=== PATIENT | female | born 1940 | race Caucasian/White ===

== ENCOUNTER 2020-02-19 10:44 | Inpatient (IN) | payer MEDICARE, SELFPAY ==
[2020-02-19] VITALS (7 sets, daily range): BP systolic 151–189; BP diastolic 58–71; PULSE 57–66; RESP 12–21; TEMP 36.1; O2SAT 98–100; BMI 18.0
--- NOTE | ~2020-02-19 | XR_ITS ---
EXAMINATION: XR chest 2V 02/19/2020 11:52 INDICATION: Hypertension. Weakness. PROCEDURE: 2 view chest COMPARISON: 02/20/2019 FINDINGS: The lungs are clear. The cardiomediastinal silhouette is within normal limits. There are no pleural effusions. There is no pneumothorax suspected. There is atherosclerosis of the aorta. El evated right diaphragm. IMPRESSION: 1: NO ACUTE CARDIOPULMONARY DISEASE. Reviewed, dictated and finalized at location A.
--- NOTE | 2020-02-19 11:15 | ECG_ITS ---
Measurements Intervals [place] Rate: 63 P: 61 [place]: 161 QRS: 26 QRSD: 98 T: 57 QT: 398 QTc: 410 Interpretive Statements SINUS RHYTHM ANTEROSEPTAL INFARCT, AGE INDETERMINATE BASELINE ARTIFACT- I, II, AVR, AVL, AVF ABNORMAL ECG Electronically Signed On 02-19-2020 11:52:33 CDT by Kervin Sun D.O.
[2020-02-19 11:27] LABS: Basophils Absolute Auto 0.1 K/mm3 (0.0-0.1); Basophils Percent Auto 1.4 % (0.2-1.2); Eosinophils Absolute Auto 0.3 K/mm3 (0-0.3); Hematocrit 29.6 % (37.0-47.0); Hemoglobin 9.8 g/dL (12.0-15.0); Immature Granulocyte Absolute 0.02 K/mm3 (0.00-0.031); Immature Granulocyte Percent A 0.4 % (0-0.5); Lymphocytes Absolute Auto 0.76 K/mm3 (0.9-3.2); Lymphocytes Percent Auto 15.6 % (18.3-44.2); Mean Corpuscular HGB Conc 33.1 g/dl (32-36); Mean Corpuscular Hemoglobin 31.7 pg (26-34); Mean Corpuscular Volume 95.8 fl (80-100); Mean Platelet Volume 9.8 fl (7.4-10.4); Monocytes Absolute Auto 0.5 K/mm3 (0.1-0.6); Monocytes Percent Auto 9.9 % (2.6-8.5); Neutrophils Absolute Auto 3.2 K/mm3 (1.3-6.7); Neutrophils Percent Auto 65.7 % (45.5-73.1); Platelet Count Result 290 k/mm3 (150-375); Red Blood Count 3.09 M/mm3 (4.2-5.4); Red Cell Distribution Width 12.8 % (11.5-14.5); White Blood Count 4.9 K/mm3 (4.5-10.0)
[2020-02-19 11:42] LABS: Alanine Aminotransferase 10 U/L (4-35); Albumin Level 4.5 g/dL (3.5-5.1); Alkaline Phosphatase 82 U/L (38-126); Anion Gap 10 mmol/L (8-16); Aspartate Amino Transferase 22 U/L (14-36); Bilirubin,Total 0.3 mg/dL (0.2-1.3); Blood Urea Nitrogen 21 mg/dL (7-17); Calcium 9.3 mg/dL (8.4-10.2); Carbon Dioxide 26 mmol/L (22-30); Chloride 92 mmol/L (98-107); Estimated CRCL calculation 23 ml/min; Estimated Glomerular Filt Rate 39; Glucose 159 mg/dL (65-105); Potassium 4.8 mmol/L (3.4-5.0); Sodium 128 mmol/L (137-145)
--- NOTE | 2020-02-19 12:19 | ED.GENADULT ---
HPI - General Adult General Chief complaint: Weakness Stated complaint: weakness, n/v Time Seen by Provider: 02/19/20 12:15 Source: patient and family Mode of arrival: ambulatory Limitations: no limitations History of Present Illness HPI narrative: 79 years old white female presents with general weakness for weeks, poor p.o. intake, dry mouth. Patient also complaining of bouts of vomiting for months. History of cancer throat, status post radiation, and left ear hearing impairment. Patient denies any fever, chills, nausea, vomiting, diarrhea, coughing, respiratory symptoms, chest pain or back pain. The daughter told me that,basically patient referred to the emergency room by her family physician for tuneup.. Currently patient denying any symptoms. Related Data Home Medications Medication Instructions Recorded Confirmed aspirin 81 mg PO DAILY 02/19/20 calcium carbonate-vitamin D3 1 tablet PO DAILY 02/19/20 [Oyster Shell Calcium-Vit D3] docusate sodium [Colace Clear] 50 mg PO DAILY 02/19/20 Allergies Allergy/AdvReac Type Severity Reaction Status Date / Time No Known Allergies Allergy Verified 02/19/20 11:35 Review of Systems Review of Systems: Narrative: CONSTITUTIONAL: Denies fever, chills, or sweats. EYES: Denies visual changes, redness, or discharge. ENT: Denies rhinorrhea, congestion, sore throat, or otalgia. CARDIOVASCULAR: Denies chest pain, palpitations, or edema. RESPIRATORY: Denies cough or dyspnea. GASTROINTESTINAL: Denies abdominal pain, nausea, vomiting, or diarrhea. GENITOURINARY: Denies dysuria or hematuria. SKIN: Denies rash or itching. MUSCULOSKELETAL: Denies back pain, joint pain, or myalgia. NEUROLOGIC: Denies headache, numbness, or weakness. PSYCHIATRIC: Denies anxiety or depression. PMFSH Family History Family History Mother Family history of cardiovascular disease Acute myocardial infarction Diabetes mellitus Father Family history of lung cancer Sibling Family history of cardiovascular disease Social History Social History Smoking status: Never smoker Alcohol intake: never Exam Narrative: Exam Narrative: General appearance: Well-developed, well-nourished Skin: Normal color Head: Normocephalic, nontraumatic Eyes: Clear conjunctiva ENT: Oropharynx normal, hearing aids bilaterally, normal nose Neck: Supple, nontender Chest and respiratory: Airway patent, no respiratory distress, no accessory muscle use Heart: Regular rate/rhythm Abdomen: Soft, nontender, no organomegaly, quiet bowel sounds Vascular: Normal peripheral pulses, normal capillary refill. 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, no gross motor deficit Course Course Emergency Course: Stable Vital Signs Vital signs: Vital Signs Temperature 36.1 C L 02/19/20 11:17 Pulse Rate 65 02/19/20 11:17 Respiratory Rate 12 02/19/20 11:17 Blood Pressure 151/63 H 02/19/20 11:17 Pulse Oximetry 99 02/19/20 11:17 Temperature 36.1 C L 02/19/20 11:17 Pulse Rate 59 L 02/19/20 11:42 Respiratory Rate 17 02/19/20 11:42 Blood Pressure 189/71 H 02/19/20 11:42 Pulse Oximetry 100 02/19/20 11:42 Medical Decision Making [facility] Narrative Medical decision making narrative: Patient main complaint is weakness which could be secondary to poor p.o. intake secondary to cancer of the throat, also depression. My plan to get labs to rule out the possibility of electrolyte imbalance or any infection like pneumonia or urinary tract infection. Differential Diag
[2020-02-19 12:39] LABS: Add Urine Microscopic? YES; Appearance Urine Clear (Clear); Bacteria Urine Trace /hpf; Bilirubin Urine Negative (Negative); Blood Urine Negative (Negative); Color Urine Yellow (Yellow); Glucose Urine UA 1+ mg/dL (Negative); Ketones Urine Negative (Negative); Leukocyte Esterase Ur 2+ LEU/UL (Negative); Mucus Urine Rare /lpf; Nitrate Urine Negative (Negative); Protein Urine Negative (Negative); Specific Grav Ur 1.011 (1.001-1.035); Squamous Epithelial Cell Urine Many /hpf (Few); Urobilinogen Urine Negative mg/dL (<2.0)
--- NOTE | 2020-02-19 15:39 | PC.NURSE ---
This patient, Jayla Hernandez, was admitted to [facility] S[facility] Room 303-01. Patient/family oriented to hospital policies and general routines including ID bracelet, bed and alarms, visiting hours, pain management, procedures, bathroom and other care routines, personal items, smoking policy, room service/diet, and visiting hours. Valuables list has been completed. Information on how to activate the Rapid Response Team has been discussed. Patient/Family are encouraged to report perceived risks to care and to ask questions if they do not understand what they are told or what they should do.
[2020-02-19] MEDS: SODIUM CHLORIDE 0.9% IV 1,000 ML 100 ML IV CONT (15:47)
[2020-02-19 18:10] LABS: Glucose Point of Care 127 (65-105)
[2020-02-19 22:56] LABS: Glucose Point of Care 155 (65-105)
[2020-02-19 22:56] LABS: Glucose Point of Care < 20 (65-105)
[2020-02-20 01:41] VITALS: BP 142/50; PULSE 64; RESP 16; TEMP 36.3; O2SAT 100
--- NOTE | 2020-02-20 02:38 | PM.IMHP ---
H&P: HPI History of Present Illness Date/Time: 02/20/20 02:38 Chief complaint: Weakness/depression/hyponatremia and dehydration Narrative: This is an 79 year old female with known history of throat cancer s/p radiation, HTN, and GERD who was referred to the hospital by her PCP. Apparently the patient has been having episodes of vomiting for months. On my encounter with the patient tonight she denies any fever, chills, nausea, vomiting, diarrhea, coughing, respiratory symptoms, chest pain, dysuria, heamaturia, or rectal bleeding. The patient was evaluated in the ER yesterday and routine labs demonstrated mild hyponatremia and dehydration. The patient was admitted to the hospital and treated with IV fluids. No other complaints. Review of Systems Review of Systems: All systems reviewed & are unremarkable except as noted in HPI and below PMFSH Past Medical History Medical History GERD (gastroesophageal reflux disease) HTN (hypertension) with goal to be determined Throat cancer Family History Family History Mother Family history of cardiovascular disease Diabetes mellitus Acute myocardial infarction Father Family history of lung cancer Sibling Family history of cardiovascular disease Sibling Acute myocardial infarction Social History Social History Smoking status: Never smoker Alcohol intake: never Substance use: never Substance use type: does not use Gender identity (if verbalized by the patient): Female Spiritual care concerns: No Meds Home Medications and Allergies Home Medications Medication Instructions Recorded Confirmed Type amlodipine 5 mg tablet 5 mg PO DAILY #90 tablet 06/18/19 02/19/20 Rx omeprazole 20 mg capsule,delayed 20 mg PO DAILY #90 cap 06/18/19 02/19/20 Rx release metoprolol tartrate 50 mg tablet 50 mg PO BID #180 tablet 10/12/19 02/19/20 Rx lisinopril 20 mg tablet 20 mg PO DAILY #90 tablet 12/14/19 02/19/20 Rx aspirin 81 mg PO DAILY 02/19/20 02/19/20 History calcium carbonate-vitamin D3 1 tablet PO DAILY 02/19/20 02/19/20 History [Oyster Shell Calcium-Vit D3] docusate sodium [Colace Clear] 50 mg PO DAILY 02/19/20 02/19/20 History triamcinolone acetonide 1 applic TOPICAL QID 02/19/20 02/19/20 History Allergies Allergy/AdvReac Type Severity Reaction Status Date / Time No Known Allergies Allergy Verified 02/19/20 11:35 Vital Signs Vital Signs - 24 hr 02/19/20 11:17 02/19/20 11:41 02/19/20 11:42 Temperature 36.1 C L Pulse Rate 65 65 59 L Respiratory Rate 12 17 Blood Pressure 151/63 H 189/71 H Pulse Oximetry 99 100 02/19/20 13:12 02/19/20 13:50 02/19/20 14:20 Temperature 36.1 C L Pulse Rate 60 57 L 65 Respiratory Rate 21 H 19 18 Blood Pressure 168/71 H 162/62 H 189/62 H Pulse Oximetry 100 100 99 02/19/20 21:05 02/20/20 01:41 Temperature 36.1 C L 36.3 C L Pulse Rate 66 64 Respiratory Rate 16 16 Blood Pressure 168/58 H 142/50 H Pulse Oximetry 98 100 Exam Const: General: cooperative, no acute distress, alert and awake Nutritional Appearance: well nourished Orientation/consciousness: patient oriented x3 HENMT: Head: normal to inspection General nose exam: Normal external nose present Face and sinus: normal facial exam Mouth: Yes Normal oral and palatal mucosa present and Yes oropharynx normal Eyes: Pupils: Equal, round and reactive pupils present EOM: EOMs intact bilaterally Neck: Neck: supple and no JVD Thyroid: thyroid normal Lymphatic: lymphadenopathy not noted Resp: Effort & Inspection: normal respiratory effort Auscultation: clear to auscultation bilaterally Cardio: Rate: regular rate Rhythm: regular rhythm Heart sounds: no murmurs GI: Inspection: normal to inspection Auscultation: normal bowel sounds Skin: General skin exam: normal color and no
[2020-02-20 06:00] VITALS: BP 158/55; PULSE 68; RESP 16; TEMP 36.2; O2SAT 100
[2020-02-20 06:43] LABS: Basophils Absolute Auto 0.1 K/mm3 (0.0-0.1); Basophils Percent Auto 1.2 % (0.2-1.2); Eosinophils Absolute Auto 0.4 K/mm3 (0-0.3); Eosinophils Percent Auto 7.6 % (0-4.4); Hematocrit 27.6 % (37.0-47.0); Hemoglobin 9.2 g/dL (12.0-15.0); Immature Granulocyte Absolute 0.02 K/mm3 (0.00-0.031); Immature Granulocyte Percent A 0.4 % (0-0.5); Lymphocytes Absolute Auto 0.88 K/mm3 (0.9-3.2); Lymphocytes Percent Auto 18.1 % (18.3-44.2); Mean Corpuscular HGB Conc 33.3 g/dl (32-36); Mean Corpuscular Hemoglobin 31.6 pg (26-34); Mean Corpuscular Volume 94.8 fl (80-100); Mean Platelet Volume 10.4 fl (7.4-10.4); Monocytes Absolute Auto 0.5 K/mm3 (0.1-0.6); Monocytes Percent Auto 9.9 % (2.6-8.5); Neutrophils Absolute Auto 3.1 K/mm3 (1.3-6.7); Neutrophils Percent Auto 62.8 % (45.5-73.1); Platelet Count Result 265 k/mm3 (150-375); Red Blood Count 2.91 M/mm3 (4.2-5.4); Red Cell Distribution Width 12.8 % (11.5-14.5); White Blood Count 4.9 K/mm3 (4.5-10.0)
[2020-02-20 07:10] LABS: Anion Gap 7 mmol/L (8-16); Blood Urea Nitrogen 21 mg/dL (7-17); Calcium 8.8 mg/dL (8.4-10.2); Carbon Dioxide 26 mmol/L (22-30); Chloride 100 mmol/L (98-107); Estimated CRCL calculation 25 ml/min; Estimated Glomerular Filt Rate 43; Glucose 105 mg/dL (65-105); Potassium 4.7 mmol/L (3.4-5.0); Sodium 133 mmol/L (137-145)
[2020-02-20 08:00] VITALS: PULSE 68; RESP 16; O2SAT 100
[2020-02-20] MEDS: amLODIPine BESYLATE 5 MG TABLET PO (09:09)
[2020-02-20] MEDS: PANTOPRAZOLE 40 MG TABLET PO (09:09)
[2020-02-20] MEDS: ASPIRIN 81 MG ENTERIC TABLET PO (09:10)
[2020-02-20] MEDS: METOPROLOL TARTRATE 50 MG TAB PO ×2 (09:10→17:13)
[2020-02-20] MEDS: DOCUSATE SODIUM LIQ 100 MG/10 ML UDC 50 MG PO (09:10)
[2020-02-20] MEDS: TRIAMCINOLONE ACET 0.1% CREAM 15 GM TUBE 1 APPLIC TOPICAL ×4 (09:11→20:56)
[2020-02-20 12:25] LABS: Glucose Point of Care 145 (65-105)
[2020-02-20 12:25] LABS: Glucose Point of Care 182 (65-105)
[2020-02-20] MEDS: SODIUM CHLORIDE 0.9% IV 1,000 ML 100 ML IV CONT (13:41)
[2020-02-20 14:00] VITALS: BP 155/64; PULSE 74; RESP 18; TEMP 36.2; O2SAT 100
--- NOTE | 2020-02-20 14:57 | PM.IMPN ---
Progress Note: A&P Assessment and Plan (1) Dehydration: Code(s): E86.0 - Dehydration Status: Acute Assessment and Plan: IV hydration, Monitor vital signs and urine output. 02/20/20 14:57 patient 79-year-old female with history of throat cancer status post radiation therapy patient states since then her mouth is very dry has difficulty with swallowing and speaking, patient presented emergency depart was found to be dehydrated most likely secondary to poor p.o. intake and is found to hyponatremia resulting from dehydration, is being gently hydrated her symptoms have improved, sodium is trending up, will consult dietitian further recommendation to help increase her dietary intake, patient denies any abdominal pain nausea or vomiting fever or chills (2) Hyponatremia: Code(s): E87.1 - Hypo-osmolality and hyponatremia Status: Acute Assessment and Plan: Light IV hydration, Check TSh w/ reflex T4, Check urine sodium and urine osm. Check BMP in am. (3) Type 2 diabetes mellitus without complications: Qualifiers: Diabetes mellitus take down sorter insulin use: without shelter use Qualified Code(s): E11.9 - Type 2 diabetes mellitus without complications Code(s): E11.9 - Type 2 diabetes mellitus without complications Status: Chronic Assessment and Plan: accuchecks, SSI Coverage, Hypoglycemic protocol. (4) Gastro-esophageal reflux disease without esophagitis: Code(s): K21.9 - Gastro-esophageal reflux disease without esophagitis Status: Chronic Assessment and Plan: Continue omeprazole (5) Essential (primary) hypertension: Code(s): I10 - Essential (primary) hypertension Status: Chronic Assessment and Plan: Continue metoprolol. (6) History of throat cancer: Code(s): Z85.819 - Personal history of malignant neoplasm of unspecified site of lip, oral cavity, and pharynx Status: Chronic Additional Plan Date of service was 02/20/2020 at 2:00 hrs. Subjective Date/time seen: 02/20/20 14:57 patient 79-year-old female with history of throat cancer status post radiation therapy patient states since then her mouth is very dry has difficulty with swallowing and speaking, patient presented emergency depart was found to be dehydrated most likely secondary to poor p.o. intake and is found to hyponatremia resulting from dehydration, is being gently hydrated her symptoms have improved, sodium is trending up, will consult dietitian further recommendation to help increase her dietary intake, patient denies any abdominal pain nausea or vomiting fever or chills Review of Systems Review of Systems: All systems reviewed & are unremarkable except as noted in HPI and below Exam Narrative: Exam Narrative: elderly frail malnourished Const: General: comfortable and no acute distress HENMT: General nose exam: Normal nares present Eyes: Sclera: sclerae normal Neck: Neck: supple Resp: Effort & Inspection: normal respiratory effort Auscultation: clear to auscultation bilaterally Cardio: Rate: regular rate Rhythm: regular rhythm GI: Auscultation: normal bowel sounds Skin: General skin exam: normal color Neuro: Speech: normal speech Sensory Exam: normal sensation Extrem: General: normal to inspection Psych: Affect: Anxious affect present Objective Data Vital Signs Vital Signs: Vital Signs - 24 hr 02/19/20 21:05 02/20/20 01:41 02/20/20 06:00 Temperature 96.9 F L 97.3 F L 97.1 F L Pulse Rate 66 64 68 Respiratory Rate 16 16 16 Blood Pressure 168/58 H 142/50 H 158/55 H Pulse Oximetry 98 100 100 02/20/20 08:00 02/20/20 14:00 Temperature 97.1 F L Pulse Rate 68 74 Respiratory Rate 16 18 Blood Pressure 155/64 H Pulse Oximetry 100 100 Intake/Output Intake/Output: Intake & Output 02/17/20 02/18/20 02/19/20 02/20/20 23:59 23:59 23:59 23:59 Intake Total 390 850 Output Total 1550 Balance 390 -700
[2020-02-20 17:05] LABS: Glucose Point of Care 147 (65-105)
[2020-02-20 22:00] VITALS: BP 163/66; PULSE 60; RESP 16; TEMP 36.7; O2SAT 100
[2020-02-20 23:09] LABS: Glucose Point of Care 145 (65-105)
[2020-02-21] MEDS: SODIUM CHLORIDE 0.9% IV 1,000 ML 100 ML IV CONT ×3 (00:06→16:28)
[2020-02-21 06:00] VITALS: BP 166/54; PULSE 61; RESP 20; TEMP 37; O2SAT 99
[2020-02-21 07:50] LABS: Hematocrit 27.7 % (37.0-47.0); Hemoglobin 9.1 g/dL (12.0-15.0); Mean Corpuscular HGB Conc 32.9 g/dl (32-36); Mean Corpuscular Hemoglobin 31.4 pg (26-34); Mean Corpuscular Volume 95.5 fl (80-100); Platelet Count Result 245 k/mm3 (150-375); Red Cell Distribution Width 12.7 % (11.5-14.5); White Blood Count 4.8 K/mm3 (4.5-10.0)
[2020-02-21 08:00] VITALS: PULSE 61; RESP 20; O2SAT 99
[2020-02-21 08:11] LABS: Anion Gap 4 mmol/L (8-16); Blood Urea Nitrogen 15 mg/dL (7-17); Calcium 8.7 mg/dL (8.4-10.2); Carbon Dioxide 25 mmol/L (22-30); Chloride 105 mmol/L (98-107); Estimated CRCL calculation 32 ml/min; Estimated Glomerular Filt Rate 60; Glucose 102 mg/dL (65-105); Potassium 4.8 mmol/L (3.4-5.0); Sodium 134 mmol/L (137-145)
[2020-02-21] MEDS: amLODIPine BESYLATE 5 MG TABLET PO (08:12)
[2020-02-21] MEDS: METOPROLOL TARTRATE 50 MG TAB PO ×2 (08:12→16:30)
[2020-02-21] MEDS: ASPIRIN 81 MG ENTERIC TABLET PO (08:14)
[2020-02-21] MEDS: PANTOPRAZOLE 40 MG TABLET PO (08:14)
[2020-02-21] MEDS: DOCUSATE SODIUM LIQ 100 MG/10 ML UDC 50 MG PO (08:15)
[2020-02-21] MEDS: TRIAMCINOLONE ACET 0.1% CREAM 15 GM TUBE 1 APPLIC TOPICAL ×4 (08:15→20:59)
[2020-02-21 12:57] LABS: Glucose Point of Care 134 (65-105)
[2020-02-21 14:00] VITALS: BP 152/57; PULSE 60; RESP 12; TEMP 36.1; O2SAT 97
--- NOTE | 2020-02-21 14:27 | PM.IMPN ---
Progress Note: A&P Assessment and Plan (1) Dehydration: Code(s): E86.0 - Dehydration Status: Acute Assessment and Plan: IV hydration, Monitor vital signs and urine output. 02/21/20 14:27 patient 79-year-old female with history of throat cancer status post radiation therapy patient states since then her mouth is very dry has difficulty with swallowing and speaking, patient presented emergency depart was found to be dehydrated most likely secondary to poor p.o. intake and is found to hyponatremia resulting from dehydration, is being gently hydrated her symptoms have improved, sodium is trending up as well her kidney function has improved, will consult dietitian further recommendation to help increase her dietary intake, patient denies any abdominal pain nausea or vomiting fever or chills, if remains clinically stable will discharge the patient home tomorrow (2) Hyponatremia: Code(s): E87.1 - Hypo-osmolality and hyponatremia Status: Acute Assessment and Plan: Light IV hydration, Check TSh w/ reflex T4, Check urine sodium and urine osm. Check BMP in am. (3) Type 2 diabetes mellitus without complications: Qualifiers: Diabetes mellitus termite inspector insulin use: without termite inspector use Qualified Code(s): E11.9 - Type 2 diabetes mellitus without complications Code(s): E11.9 - Type 2 diabetes mellitus without complications Status: Chronic Assessment and Plan: accuchecks, SSI Coverage, Hypoglycemic protocol. (4) Gastro-esophageal reflux disease without esophagitis: Code(s): K21.9 - Gastro-esophageal reflux disease without esophagitis Status: Chronic Assessment and Plan: Continue omeprazole (5) Essential (primary) hypertension: Code(s): I10 - Essential (primary) hypertension Status: Chronic Assessment and Plan: Continue metoprolol. (6) History of throat cancer: Code(s): Z85.819 - Personal history of malignant neoplasm of unspecified site of lip, oral cavity, and pharynx Status: Chronic Subjective Date/time seen: 02/21/20 14:27 patient 79-year-old female with history of throat cancer status post radiation therapy patient states since then her mouth is very dry has difficulty with swallowing and speaking, patient presented emergency depart was found to be dehydrated most likely secondary to poor p.o. intake and is found to hyponatremia resulting from dehydration, is being gently hydrated her symptoms have improved, sodium is trending up as well her kidney function has improved, will consult dietitian further recommendation to help increase her dietary intake, patient denies any abdominal pain nausea or vomiting fever or chills, if remains clinically stable will discharge the patient home tomorrow Review of Systems Review of Systems: All systems reviewed & are unremarkable except as noted in HPI and below Exam Narrative: Exam Narrative: elderly frail Const: General: comfortable and no acute distress HENMT: General nose exam: Normal nares present Eyes: General: appearance normal, both eyes and all related structures Sclera: sclerae normal Neck: Neck: supple Resp: Effort & Inspection: normal respiratory effort Auscultation: clear to auscultation bilaterally Cardio: Rate: regular rate Rhythm: regular rhythm GI: Auscultation: normal bowel sounds Skin: General skin exam: normal color Neuro: Speech: normal speech Sensory Exam: normal sensation Extrem: General: normal to inspection Psych: Mental Status: mental status grossly normal Affect: normal affect Objective Data Vital Signs Vital Signs: Vital Signs - 24 hr 02/20/20 22:00 02/21/20 06:00 02/21/20 08:00 Temperature 98.1 F 98.6 F Pulse Rate 60 61 61 Respiratory Rate 16 20 20 Blood Pressure 163/66 H 166/54 H Pulse Oximetry 100 99 99 Intake/Output Intake/Output: Intake & Output 02/18/20 02/19/20 02/20/20 02/21/20 23:59 23:59
[2020-02-21 16:53] LABS: Glucose Point of Care 186 (65-105)
[2020-02-21] MEDS: ACETAMINOPHEN 325 MG TABLET 650 MG (17:45)
[2020-02-21 21:44] LABS: Glucose Point of Care 208 (65-105)
[2020-02-21 22:00] VITALS: BP 134/52; PULSE 63; RESP 16; TEMP 37.1; O2SAT 98
[2020-02-22] MEDS: SODIUM CHLORIDE 0.9% IV 1,000 ML 100 ML IV CONT (04:49)
[2020-02-22 06:00] VITALS: BP 147/48; PULSE 66; RESP 16; TEMP 37; O2SAT 98
[2020-02-22 06:37] LABS: Hematocrit 25.7 % (37.0-47.0); Hemoglobin 8.5 g/dL (12.0-15.0); Mean Corpuscular HGB Conc 33.1 g/dl (32-36); Mean Corpuscular Hemoglobin 31.4 pg (26-34); Mean Corpuscular Volume 94.8 fl (80-100); Mean Platelet Volume 10.3 fl (7.4-10.4); Platelet Count Result 225 k/mm3 (150-375); Red Blood Count 2.71 M/mm3 (4.2-5.4); Red Cell Distribution Width 12.7 % (11.5-14.5); White Blood Count 10.7 K/mm3 (4.5-10.0)
[2020-02-22 06:48] LABS: Anion Gap 4 mmol/L (8-16); Blood Urea Nitrogen 14 mg/dL (7-17); Calcium 8.3 mg/dL (8.4-10.2); Carbon Dioxide 24 mmol/L (22-30); Chloride 104 mmol/L (98-107); Estimated CRCL calculation 29 ml/min; Estimated Glomerular Filt Rate 53; Glucose 118 mg/dL (65-105); Potassium 4.4 mmol/L (3.4-5.0); Sodium 132 mmol/L (137-145)
[2020-02-22] MEDS: amLODIPine BESYLATE 5 MG TABLET PO (08:35)
[2020-02-22] MEDS: ASPIRIN 81 MG ENTERIC TABLET PO (08:35)
[2020-02-22] MEDS: DOCUSATE SODIUM LIQ 100 MG/10 ML UDC 50 MG PO (08:36)
[2020-02-22 08:37] VITALS: PULSE 66
[2020-02-22] MEDS: PANTOPRAZOLE 40 MG TABLET PO (08:37)
[2020-02-22] MEDS: METOPROLOL TARTRATE 50 MG TAB PO (08:37)
--- NOTE | 2020-02-22 10:26 | PM.DS ---
DS: Admitting Diagnosis Admitting Diagnosis Admitting Diagnosis: Weakness/depression/hyponatremia and dehydration DS: Discharge Diagnosis Discharge Diagnosis (1) Dehydration: Code(s): E86.0 - Dehydration Status: Acute Assessment and Plan: IV hydration, Monitor vital signs and urine output. 02/21/20 14:27 patient 79-year-old female with history of throat cancer status post radiation therapy patient states since then her mouth is very dry has difficulty with swallowing and speaking, patient presented emergency depart was found to be dehydrated most likely secondary to poor p.o. intake and is found to hyponatremia resulting from dehydration, is being gently hydrated her symptoms have improved, sodium is trending up as well her kidney function has improved, will consult dietitian further recommendation to help increase her dietary intake, patient denies any abdominal pain nausea or vomiting fever or chills, if remains clinically stable will discharge the patient home tomorrow (2) Hyponatremia: Code(s): E87.1 - Hypo-osmolality and hyponatremia Status: Acute Assessment and Plan: Light IV hydration, Check TSh w/ reflex T4, Check urine sodium and urine osm. Check BMP in am. (3) Type 2 diabetes mellitus without complications: Qualifiers: Diabetes mellitus [facility] insulin use: without [facility] use Qualified Code(s): E11.9 - Type 2 diabetes mellitus without complications Code(s): E11.9 - Type 2 diabetes mellitus without complications Status: Chronic Assessment and Plan: accuchecks, SSI Coverage, Hypoglycemic protocol. (4) Gastro-esophageal reflux disease without esophagitis: Code(s): K21.9 - Gastro-esophageal reflux disease without esophagitis Status: Chronic Assessment and Plan: Continue omeprazole (5) Essential (primary) hypertension: Code(s): I10 - Essential (primary) hypertension Status: Chronic Assessment and Plan: Continue metoprolol. (6) History of throat cancer: Code(s): Z85.819 - Personal history of malignant neoplasm of unspecified site of lip, oral cavity, and pharynx Status: Chronic DS: Summary Hospital Course Reason for hospitalization: Chief complaint: Weakness/depression/hyponatremia and dehydration Narrative: This is an 79 year old female with known history of throat cancer s/p radiation, HTN, and GERD who was referred to the hospital by her PCP. Apparently the patient has been having episodes of vomiting for months. On my encounter with the patient tonight she denies any fever, chills, nausea, vomiting, diarrhea, coughing, respiratory symptoms, chest pain, dysuria, heamaturia, or rectal bleeding. The patient was evaluated in the ER yesterday and routine labs demonstrated mild hyponatremia and dehydration. The patient was admitted to the hospital and treated with IV fluids. No other complaints. Hospital Course: patient 79-year-old female with history of throat cancer status post radiation therapy patient states since then her mouth is very dry has difficulty with swallowing and speaking, patient presented emergency depart was found to be dehydrated most likely secondary to poor p.o. intake and is found to hyponatremia resulting from dehydration, is being gently hydrated her symptoms have improved, sodium is trending up as well her kidney function has improved, will consult dietitian further recommendation to help increase her dietary intake, patient denies any abdominal pain nausea or vomiting fever or chills, remains clinically stable will discharge the patient home today. Status at Discharge Functional status at discharge: independent ambulation Overall status at discharge: patient is not back to baseline Time Spent with Patient Time attestation: Total time spent providing and/or coordinating discharge services: Patient was seen and examined at the time of the discharge Condition at discha
[2020-02-24 06:32] LABS: Osmolality, Urine 212 mOsm/kg (50-1200)
== END 2020-02-22 11:35 | disposition home or self-care (01) | DRG 641 ==
LOC: ANHED 12:15 → ANH3MEDSUR 13:31
PROVIDERS: Emergency Medicine; Family Medicine; Admitting Provider Internal Medicine; Emergency Provider Emergency Medicine; PCP Family Medicine; Visit Provider Family Medicine
DX: E87.1 Hypo-osmolality and hyponatremia (principal); E86.0 Dehydration; E11.9 Type 2 diabetes mellitus without complications; K21.9 Gastro-esophageal reflux disease without esophagitis; I10 Essential (primary) hypertension
CPT/HCPCS: 36415; 71046; 80048; 80053; 81001; 83935; 84443; 85025; 85027; 93005; 96360; 97161; 97165; 99285; A9270; J7030

== ENCOUNTER 2020-08-31 13:05 | Outpatient (CLI) | payer MEDICARE, SELFPAY ==
--- NOTE | ~2020-08-31 | XR_ITS ---
MODIFIED ESOPHAGRAM HISTORY: Bilateral infarction. History of throat cancer. TECHNIQUE: Modified barium esophagram was performed by speech pathologist under radiologist fluorosco pic guidance. This was recorded on tape. The exam was reviewed on 08/31/2020 14:07 CDT. The DAP for this procedure was 4.7 Gycm2. Fluoroscopy time is 2.3 minutes. FINDINGS: Lateral projection of the cervical spine demonstrates normal alignment. There is slow mas tication and bolus formation. There is reduced laryngeal elevation, tongue base retraction and pharyn geal squeeze. There is vallecular and Forearm sinus residue as well as pharyngeal wall residue. There is laryngeal penetration during and a fter swallow with trace aspiration. Cricopharyngeus appears prominent. IMPRESSION: 1: Abnormal swallowing function particularly during pharyngeal stage with laryngeal penetration durin g and after swallow and trace aspiration. 2: Please refer to speech pathologist report for additional detail. Reviewed, dictated and finalized at location A. IMPRESSION: 1: Abnormal swallowing function particularly during pharyngeal stage with laryn geal penetration during and after swallow and trace aspiration. 2: Please refer to speech pathologist report for additional detail.
--- NOTE | 2020-08-31 15:10 | STOPEVAL ---
MODIFIED BARIUM SWALLOW EVALUATION: Thank you for referring Jayla Hernandez to [facility].? Attending Provider: Adonis Dallas MD Outpatient Past Medical History Past Medical History Source of Past Medical History Patient,Family/Significant Other Neurological History Hx Neurological Disorders No Significant History Cardiovascular History Hx Cardiac Disorders No Significant History Respiratory History Hx Respiratory Disorders No Significant History Gastrointestinal History Hx Gall Bladder Disease Yes Hx Gastroesophageal Reflux Disease Yes Genitourinary History Hx Genitourinary Disorders No Significant History Musculoskeletal History Hx Arthritis Yes: back Hx Orthopedic Surgery Yes: c-5 implant - 1999 Hematological History Hx Blood Transfusions Yes Endocrine History Hx Diabetes Yes HEENT History Hx Cataracts Yes: bilateral implants Hx Other HEENT Disorders Yes: hearing loss Integumentary History Hx Other Skin Disorders Yes: rash on chest Reproductive History Hx Hysterectomy Yes Psychosocial History Hx Psychiatric Disorders No Significant History Pain History History of Any Previous or Ongoing No Significant History Instance of Pain Anesthesia History Hx Anesthesia Reactions No Significant History Other History Hx Cancer Yes: tonsil Hx Radiation Therapy Yes Hx Other Medical Conditions Yes: radiation to throat greater than 10 years ago Evaluation Information Problem Diagnosis sometimes food gets stuck Onset 10 years Cause tonsillar cancer and radiation treatments Additional Evaluation Detail All previous medical care for tonsillar cancer was in [place] Subjective Information pleasant lady able to provide Query Text:As Reported By Patient/ most of PMH Family Prior Level of Function Home Setting Living Situation Alone Support Available Local Family Support Cargiver Responsibilities Comment pt's daughter assist pt as needed Prior Swallow Level Prior Intake Method Oral Prior Diet levels 4/5 Pain Assessment Timing of Pain Assessment Timing of Pain Assessment Assessment Self Report Self Report Pain Level 0 Pain Score Pain Score 0: Self Report Modified Barium Swallow Evaluation Recent Swallowing History Reports Dysphagia Yes: sometimes it gets stuck pt referring to solids Duration of Dysphagia 10 years History of Related Medical Diagnosis Radiation to Head/Neck Other Factors Impacting Dysphagia None History of Pneumonia
== END 2020-08-31 13:06 | disposition home or self-care (01) ==
PROVIDERS: PCP Family Medicine; Visit Provider Family Medicine
DX: I63.9 Cerebral infarction, unspecified (principal)
CPT/HCPCS: 92611

== ENCOUNTER 2020-09-22 14:00 | Outpatient (RCR) | payer MEDICARE, SELFPAY ==
--- NOTE | 2020-09-12 14:34 | STOPEVAL ---
SPEECH THERAPY INITIAL EVALUATION: Thank you for referring Jayla Hernandez to [facility].? The patient is scheduled to be seen for therapy? 1x/week for 3 weeks. Please review, sign, date and return this plan of care CHADD. I agree with and certify that the following plan of care is medically necessary. Referring Physician Date Attending Provider: Adonis Dallas MD; FAX [phone] *ST Outpatient Evaluation Outpatient Past Medical History Past Medical History Source of Past Medical History Patient,Family/Significant Other Neurological History Hx Neurological Disorders No Significant History Cardiovascular History Hx Cardiac Disorders No Significant History Respiratory History Hx Respiratory Disorders No Significant History Gastrointestinal History Hx Gall Bladder Disease Yes Hx Gastroesophageal Reflux Disease Yes Genitourinary History Hx Genitourinary Disorders No Significant History Musculoskeletal History Hx Arthritis Yes: generalized across shoulders Hx Orthopedic Surgery Yes: c-5 implant - 1999 Hematological History Hx Blood Transfusions Yes Endocrine History Hx Diabetes Yes: not anymore HEENT History Hx Cataracts Yes: bilateral implants Hx Other HEENT Disorders Yes: hearing loss Integumentary History Hx Other Skin Disorders Yes: rash on chest Reproductive History Hx Hysterectomy Yes Psychosocial History Hx Psychiatric Disorders No Significant History Pain History History of Any Previous or Ongoing No Significant History Instance of Pain Anesthesia History Hx Anesthesia Reactions No Significant History Other History Hx Cancer Yes: tonsil Hx Radiation Therapy Yes Hx Other Medical Conditions Yes: radiation to throat about 9 years ago Prior Level of Function Activity Level (Last 3 Months) Occupation retired Home Setting Home Type Condo/Duplex/Townhouse Living Situation Alone Support Available Local Family Support Prior Swallow Level Prior Intake Method Oral Prior Diet Regular (Level 7 Diet) Prior Liquid Consistency Thin (Level 0 Diet) Prior Cognition/Communication Prior Communication Level No Impairment Prior Cognitive Function Able to Function Independently Pain Assessment Timing of Pain Assessment Timing of Pain Assessment Assessment Self Report Self Report Pain Level 0 Pain Score Pain Score 0: Self Report Bedside Swallow Evaluation General Reports Dysphagia Yes: previous MBS (08-31-) History of Related Medical Diagnosis Radiation to Head/Neck Related History tonsillar ca with r
--- NOTE | 2020-09-22 15:17 | PCSTNOTE ---
SPEECH THERAPY DISCHARGE: Attending Provider: Adonis Dallas MD Patient:Jayla Hernandez Date of :1940 Patient returned for 1 treatment session for HEP teaching. At said visit, she demonstrated understanding of dysphagia HEP as well as the purpose of compliance with the provided swallowing guidelines. It was agreed that she would continue with the HEP indefinitely and return (to her physician) if further swallowing difficulty develops. Pt will be discharged at this time. The goals have been met. Thank you for referring this patient to [facility]. Please review, sign, date and return this discharge summary CHADD. I have been updated about the patient's current status and I agree with discharge from the above service at this time. Referring Physician Date
== END 2020-09-23 12:00 | disposition home or self-care (01) ==
LOC: ANHST 14:00
PROVIDERS: PCP Family Medicine; Referring Provider Family Medicine; Visit Provider Family Medicine
DX: T17.908D Unspecified foreign body in respiratory tract, part unspecified causing other injury, subsequent encounter (principal)
CPT/HCPCS: 92526; 92610

== ENCOUNTER → 2020-10-01 07:10 | Outpatient (CLI) | payer MEDICARE, SELFPAY ==
[2020-10-01 20:53] LABS: SARS-CoV-2 RNA PCR Negative
== END ==
PROVIDERS: PCP Family Medicine; Visit Provider Internal Medicine Gastroenterology
DX: Z01.812 Encounter for preprocedural laboratory examination (principal); Z20.822 Contact with and (suspected) exposure to COVID-19
CPT/HCPCS: C9803; U0003; U0005

== ENCOUNTER 2020-10-03 02:47 | Day surgery (SDC) | payer MEDICARE, SELFPAY ==
[2020-09-21 14:16] VITALS: BMI 17.2
[2020-10-03 10:00] VITALS: BP 150/106; PULSE 64; RESP 20; TEMP 36.6; O2SAT 100; BMI 18.7
[2020-10-03] MEDS: LACTATED RINGERS 1,000 ML 150 ML IV CONT (10:22)
--- NOTE | 2020-10-03 10:32 | PM.HPGS ---
History of Present Illness History of Present Illness Consent: Risks, benefits, and alternatives have been discussed and questions answered. Patient agrees to proceed with procedure. Chief complaint: dysphagia Narrative: Jayla Hernandez is a 80 year old female with dysphagia for solid and liquid food. 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 It takes her several attempts to swallow even a bite of food. Consequently she has resorted to protein shakes of which she is getting tired of. Pills are difficult to swallow as well Review of Systems Review of Systems: All systems reviewed & are unremarkable except as noted in HPI and below PMFSH Past Medical History Medical History (Updated 10/03/20 @ 10:34 by Darien Yepez MD) GERD (gastroesophageal reflux disease) HTN (hypertension) with goal to be determined Throat cancer Family History Family History Mother Family history of cardiovascular disease Diabetes mellitus Acute myocardial infarction Father Family history of lung cancer Sibling Family history of cardiovascular disease Sibling Acute myocardial infarction Social History Social History Alcohol intake: never Substance use: never Substance use type: does not use Living arrangements: alone Gender identity (if verbalized by the patient): Female Spiritual care concerns: No Meds Home Medications and Allergies Home Medications Medication Instructions Recorded Confirmed Type Colace Clear 50 mg PO DAILY 02/19/20 09/22/20 History aspirin 81 mg PO DAILY 02/19/20 09/22/20 History calcium carbonate-vitamin D3 1 tablet PO DAILY 02/19/20 09/22/20 History [Oyster Shell Calcium-Vit D3] lisinopril 20 mg tablet 20 mg PO DAILY 03/04/20 09/22/20 History acetic acid 2 % ear solution 4 drop EACH EAR TID #15 ml 03/09/20 09/22/20 Rx amlodipine 5 mg tablet See Rx Instructions .ROUTE 09/08/20 09/22/20 Rx .COMPLEX #90 tablet metoprolol tartrate 50 mg tablet See Rx Instructions .ROUTE 09/08/20 09/22/20 Rx .COMPLEX #180 tablet omeprazole 20 mg capsule,delayed See Rx Instructions .ROUTE 09/08/20 09/22/20 Rx release .COMPLEX #90 cap Allergies Allergy/AdvReac Type Severity Reaction Status Date / Time No Known Allergies Allergy Verified 09/22/20 15:41 Vital Signs Vital Signs - 24 hr 10/03/20 10:00 Temperature 36.6 C Pulse Rate 64 Respiratory Rate 20 Blood Pressure 150/106 H Pulse Oximetry 100 Exam Const: General: alert Orientation/consciousness: patient oriented x3 Resp: Auscultation: clear to auscultation bilaterally Cardio: Rhythm: regular rhythm GI: GI Palp: Yes Soft to palpation and No Tenderness to palpation present (GI) Neuro: General: patient oriented x3 Assessment and Plan Assessment and plan (1) Dysphagia: Code(s): R13.10 - Dysphagia, unspecified Status: Acute Assessment and Plan: EGD with possible biopsy or dilatation or cautery.
[2020-10-03 10:47] VITALS: BP 162/58
--- NOTE | 2020-10-03 10:53 | WPDANESEPPF ---
Anes - Initial Pre Proc Eval Procedure: Operation Date: 10/03/20 11:00 Proposed Procedures p Esophagogastroduodenoscopy - Darien Yepez MD Date/Time: 10/03/20 10:53 Surgeon: Darien Yepez MD Pre Op Diagnosis: dysphagia Patient Data Age: 80 Gender: F Height: 5 ft 4 in Weight: 49.6 kg Last Vital Signs Temp 97.8 F 10/03/20 10:00 Pulse 64 10/03/20 10:00 Resp 20 10/03/20 10:00 BP 162/58 H 10/03/20 10:47 Pulse Ox 100 10/03/20 10:00 Allergies Allergy/AdvReac Type Severity Reaction Status Date / Time No Known Allergies Allergy Verified 09/22/20 15:41 Home Medications Medication Instructions Recorded Confirmed Type Colace Clear 50 mg PO DAILY 02/19/20 09/22/20 History aspirin 81 mg PO DAILY 02/19/20 09/22/20 History calcium carbonate-vitamin D3 1 tablet PO DAILY 02/19/20 09/22/20 History [Oyster Shell Calcium-Vit D3] lisinopril 20 mg tablet 20 mg PO DAILY 03/04/20 09/22/20 History acetic acid 2 % ear solution 4 drop EACH EAR TID #15 ml 03/09/20 09/22/20 Rx amlodipine 5 mg tablet See Rx Instructions .ROUTE 09/08/20 09/22/20 Rx .COMPLEX #90 tablet metoprolol tartrate 50 mg tablet See Rx Instructions .ROUTE 09/08/20 09/22/20 Rx .COMPLEX #180 tablet omeprazole 20 mg capsule,delayed See Rx Instructions .ROUTE 09/08/20 09/22/20 Rx release .COMPLEX #90 cap Patient hx anesthesia problems: none Family hx anesthesia problems: none PMFSH Past Medical History Medical History (Updated 10/03/20 @ 10:34 by Darien Yepez MD) GERD (gastroesophageal reflux disease) HTN (hypertension) with goal to be determined Throat cancer Family History Family History Mother Family history of cardiovascular disease Diabetes mellitus Acute myocardial infarction Father Family history of lung cancer Sibling Family history of cardiovascular disease Sibling Acute myocardial infarction Social History Social History Alcohol intake: never Substance use: never Substance use type: does not use Living arrangements: alone Gender identity (if verbalized by the patient): Female Spiritual care concerns: No Anes - Eval Final PreProcedure Day of Procedure 10/03/20 10:53 Patient weight: normal Heart: regular rate and rhythm Lungs: clear to auscultation Airway: Mallampati scale class II Neurological: alert and oriented Last oral intake: >/= 8 hours ASA classification: III Emergent: no Anesthetic plan: proceed Anesthesia type and monitoring: general GIVS and standard monitoring Informed Consent: The patient's anesthetic plan and its attendant risks and benefits were discussed with the patient/family/POA. Questions were solicited and answers provided to the satisfaction of the patient/family/POA.
[2020-10-03 11:26] VITALS: BP 129/57; PULSE 56; RESP 18; O2SAT 95
[2020-10-03 11:36] VITALS: BP 132/59; PULSE 58; RESP 20; O2SAT 100
[2020-10-03 11:46] VITALS: BP 150/63; PULSE 64; RESP 16; O2SAT 99
== END 2020-10-03 12:16 | disposition home or self-care (01) ==
PROVIDERS: PCP Family Medicine; Visit Provider Internal Medicine Gastroenterology
PROC: 0DJ08ZZ Inspection of Upper Intestinal Tract, Via Natural or Artificial Opening Endoscopic (ICD-10-PCS; CPT 43235; principal; 2020-10-03 11:00)
DX: R13.10 Dysphagia, unspecified (principal); K21.9 Gastro-esophageal reflux disease without esophagitis; I10 Essential (primary) hypertension; Z85.819 Personal history of malignant neoplasm of unspecified site of lip, oral cavity, and pharynx; Z92.3 Personal history of irradiation; K44.9 Diaphragmatic hernia without obstruction or gangrene
CPT/HCPCS: 43235; J7120